=== PATIENT | female | born 1955 | race Caucasian/White ===

== ENCOUNTER → 2023-10-16 11:14 | Outpatient (REF) | payer MEDICARE, OTHER, SELFPAY | LOC: RAD 11:14 | PROVIDERS: ATTENDING PHYSICIAN Student in an Organized Health Care Education/Training Program | DX: M54.50 Low back pain, unspecified (principal); M25.551 Pain in right hip; M25.552 Pain in left hip | CPT/HCPCS: 72110 ==

== ENCOUNTER 2023-11-21 09:52 | Emergency (ER) | payer MEDICARE, OTHER, SELFPAY ==
[2023-11-21 10:30] VITALS: BP 163/91
[2023-11-21 11:57] VITALS: BMI 20.2
[2023-11-21 12:00] VITALS: BP 160/88
--- NOTE | 2023-11-21 12:05 | EDRN ---
Dr. Nichole in room w /pt at this time.
[2023-11-21 12:16] LABS: % Basophils 1.3 % (0-2); % Eosinophils 2.3 % (0-6); % Immature Granulocytes 0.2 % (0-0.5); % Lymphocytes 38.6 % (20.5-51.1); % Monocytes 9.7 % (1.7-9.3); % Neutrophils 47.9 % (42.2-75.2); Absolute Basophils 0.1 10^3/uL (0-0.2); Absolute Eosinophils 0.1 10^3/uL (0-0.7); Absolute Lymphocytes 2.4 10^3/uL (1.2-3.4); Absolute Monocytes 0.6 10^3/uL (0.1-0.6); Hematocrit 32.4 % (37.0-47.0); Hemoglobin 11.4 g/dL (12.0-16.0); Mean Corp Hgb Conc. 35.2 g/dL (33.0-37.0); Mean Corpuscular Hgb 33.7 pg (27.0-31.0); Mean Corpuscular Volume 95.9 fL (81.0-99.0); Mean Platelet Volume 10.8 fL (7.4-10.4); Nucleated Red Blood Cells % 0 %; Platelet Count 192 10^3/uL (130-400); Red Blood Cell Count 3.38 10^6/uL (4.20-5.40); White Blood Cell Count 6.2 10^3/uL (4.8-10.8)
--- NOTE | 2023-11-21 12:26 | ED.GENMED ---
History of Present Illness
General
Chief Complaint: Flank Pain
Source: patient and spouse
Exam Limitations: none
Time Seen by Provider: 11/21/23 11:48
Nursing documentation reviewed up to this point in time: agreed with
History of Present Illness
History of Present Illness:
68-year-old female with a past medical history of hypertension who presents to the emergency room for evaluation of abdominal/flank pain. Pain is located in the right lateral abdomen radiates towards the right flank; she describes the pain as sharp
and burning in quality. Patient reports onset of symptoms Thursday and have been waxing and waning but consistent since then. She says symptoms seem to be worse when she sits up and somewhat better when she lays flat. She reports associated nausea
but no vomiting. Denies any diarrhea or constipation. Denies any dysuria, hematuria, change in urinary frequency. She is status post hysterectomy, no vaginal bleeding. She denies fever or chills. She denies any other complaints. She denies
having had similar symptoms in the past. She does report that she had a strain/injury to her low back the day prior to onset of her symptoms.
Review of Systems
Review of Systems
All Other Systems: ROS reviewed and negative except as documented in HPI and ROS
Constitutional: Denies fever or chills
Respiratory: Denies cough or trouble breathing
Cardiac: Denies chest pain
ABD/GI: Reports abdominal pain and nausea; Denies vomiting, diarrhea or constipated
: Reports flank pain; Denies dysuria, frequency or bleeding
Musculoskeletal: Denies neck pain or back pain
Neurological: Denies dizzy or headache
Phy Exam
Physical Exam
Physical Exam:
General: Awake, alert, oriented x3; no acute distress
Head: Normocephalic, atraumatic
Eyes: Conjunctiva normal, sclera anicteric
Throat: Airway intact, handling secretions
Neck: Trachea midline, supple without meningismus
Lungs: Clear to auscultation bilaterally, no wheezing, rales, rhonchi
Heart: Regular rate and rhythm, no murmurs, gallops, or rubs
Abd: Soft, non distended, nontender to deep palpation�specifically nontender in the right lower quadrant
Back: No CVA tenderness
Neuro: No gross deficits
Extremities: Warm and well-perfused
Scores
Heart Failure Risk
Heart Failure Risk Score: Not Applicable
Heart Score for Chest Pain Patients
STEMI patient?: Not applicable
Withdrawal Assessment of Alcohol
Withdrawal Assessment Completed?: Not applicable
Course
Orders/Labs/Results
Orders:
Orders
11/21/23 11:40
IV Insert/Care/Rem.- Treatment PRN
11/21/23 11:50
CT Abd/pel Without Iv Or Oral Urgent
Comment:
Reason For Exam: right flank pain
11/21/23 11:51
Complete Blood Count/With Diff Urgent
Comprehensive Metabolic Panel Urgent
Urinalysis Reflex To Culture Urgent
Date Specimen was Collected: 11/21/23
Time Specimen was Collected: 11:40
Urine Microscopic Reflex Cult Urgent
Urine Culture Urgent
BONY Source: U
Specimen Description:
Date Specimen was Collected: 11/21/23
Time Specimen was Collected: 11:40
11/21/23 12:26
Acetaminophen [Tylenol] 650 mg PO NOW STA
Abnormal Lab Results
11/21/23
11:51
RBC 3.38 L 10^6/uL
(4.20-5.40)
Hgb 11.4 L g/dL
(12.0-16.0)
Hct 32.4 L %
(37.0-47.0)
MCH 33.7 H pg
(27.0-31.0)
MPV 10.8 H fL
(7.4-10.4)
Monocytes % 9.7 H %
(1.7-9.3)
Urine Ketones Trace A
(Negative)
Leukocyte Esterase Rfl 2+ A
(Negative)
Urine Bacteria (Reflex) Few A
(Negative)
11/21/23 11:51
11/21/23 11:51
Vital Signs
Initial and Last Documented VS:
Initial Vital Signs
Temp Pulse Resp BP Pulse Ox
37.5 C 79 16 163/91 100
11/21/23 10:30 11/21/23 10:30 11/21/23 10:30 11/21/23 10:30 11/21/23 10:30
Last Documented Vital Signs
Temp Pulse Resp BP Pulse Ox
37.5 C 71 16 146/83 100
11/21/23 10:30 11/21/23 13:00 11/21/23 13:00 11/21/23 13:00 11/21/23 13:00
MDM/Problems Addressed
Differential Diagnosis Includes:
Nephrolithiasis, UTI/pyelonephritis, appendicitis, cholecystitis/cholelithiasis, musculoskeletal pain/radiculopathy
MDM/Problems Addressed:
68-year-old female presents evaluation of right abdominal/flank pain ongoing x 5 days as described above. Hypertensive but otherwise normal vitals. Physical exam as above. Will plan to place an IV check labs including CBC and CMP. Check
urinalysis. Will send for CT abdomen pelvis. Will treat pain�She has been treating successfully with Tylenol at home, will start with this. Will reassess after the above. Clinically suspect likely nephrolithiasis.
Labs reviewed: CBC shows marginal anemia otherwise unremarkable. CMP no clinically significant abnormalities. Urinalysis negative for infection�only few bacteria with squamous cells to suggest contamination in the absence of dysuria, change in
frequency low suspicion for UTI and will hold on antibiotic treatment. CT of the abdomen pelvis showed no nephrolithiasis or other acute pathology to account for symptoms. Appendix was not visualized on this study notably. While she does have
right-sided pain she has no abdominal tenderness whatsoever, no leukocytosis, no fever and 4 days of symptoms. I had a long discussion with the patient. I explained that while CT was negative it could not rule out appendicitis 100%. I offered
repeat CT with p.o. and IV contrast to rule out appendicitis but patient does not feel this is necessary and is okay with watchful waiting for now. I think at this point most likely diagnosis is that this is either musculoskeletal pain or
potentially a radiculopathy�she did have a back strain prior to onset of the symptoms and actually already has an appointment with [facility] this week. She feels comfortable following up with [facility] in the office continue to treat at
home with Tylenol and returning if symptoms seem to worsen or she develops a fever or any other complaints. Using shared decision making we will forego repeat CT scan with p.o. and IV contrast in favor of watchful waiting and outpatient follow-up
with strict return precautions.
Acute Exacerbation and/or Progression of Chronic Illness:
Acutely hypertensive
Acute Exacerbation and/or Progression of Chronic Illness: HTN
*Radiology
Radiology exam reviewed: radiology read reviewed
*Pulse Oximetry
Patient hypoxic: no
*Critical Care Note
Total Time (30-74mins, 75-104mins- exclusive of procedures): Not Applicable
Data Reviewed
Review of Other/Old Records Reveals: Labs and Records
Source: patient and spouse
Prescriptions/Medications Considered But Not Given:
Considered need for antibiotics as above
Further Testing Considered But Not Given:
Considered second CT with p.o. and IV contrast as described above
Patient Management
Escalation/DeEscalation of care consider admission/obs:
Shared decision making�discharged as above
ED Attending Note
-
Portions of this chart may have been created with voice recognition software.� Occasional wrong word or��sound alike� substitutions may have occurred due to the inherent limitations of voice recognition software.
Discharge Plan
Departure
Patient Disposition: Home (Routine Discharge)
Date of Disposition: 11/21/23
Time of Disposition: 14:06
Patient with high blood pressure during this ER visit?: Yes
Discharge Problem:
Right flank pain, Hypertension, Anemia
Instructions: Flank Pain (DC), BLOOD PRESSURE
Prescriptions:
No Action
multivitamin [Bzk-Oleasa-Zaerj] 1 EACH tablet
1 tab PO DAILY
cyanocobalamin (vitamin B-12) 100 MCG tablet
1,000 mcg PO DAILY
calcium carbonate 500 MG tablet
500 mg PO DAILY
biotin 1 MG capsule
1 mg PO DAILY
oxycodone-acetaminophen 5 MG/325 MG tablet
1 tab PO Q4HPRN PRN (Reason: mild pain) Qty: 20 0RF
Referrals:
Augustina Villarreal PA-C [Family Provider] - Follow up in 5-7 days
Activity Restrictions/Additional Instructions:
As we discussed to the emergency room, while we think your symptoms are likely from a pinched nerve or muscular issue we could not with certainty locate your appendix on CT scan. We spoke about potentially repeating CT scan with oral contrast but
after discussion we opted to instead treat conservatively with watchful waiting and Tylenol for pain. If you notice your symptoms are worsening or you develop fever, or any other symptoms that are concerning you should return to the emergency room.
Otherwise you should follow-up with [facility] orthopedics as scheduled. Incidentally while here in the emergency room you also were noted to have high blood pressure and your blood work also showed some very mild anemia. These issues should be
followed up with your primary care physician and you should schedule an appointment within the next week to follow-up on this visit.
Thank you for visiting the Emergency Department at [facility].
1. Please schedule a follow up appointment as directed. Call first thing tomorrow morning to make an appointment.
2. If indicated, please take your medications as instructed and indicated on discharge paperwork.
3. If any of your symptoms do not improve, or persist, or become more severe within 6-12 hours, please return to the emergency department for further care.
4. Please return to the emergency department if you develop a headache, neck pain/stiffness, fever greater than 100.4F, chest pain, shortness of breath, persistent nausea, vomiting, slurred speech, difficulty walking, numbness/tingling, weakness,
signs of infection or any other symptoms that are worrisome to you.
Please call [phone] if you have any questions.
Interventions
Interventions:
*Risk Screen - Suicide Last Done: 11/21/23 12:00
*General Assessment Last Done: 11/21/23 12:00
*Neglect/Abuse Screening Last Done: 11/21/23 12:00
ED- Fall Risk Assessment Last Done: 11/21/23 12:00
*ED COVID-19 Vaccine History Last Done: 11/21/23 12:00
KB-Eenrcy-Glmaqzjizm Assessment Last Done: 11/21/23 12:00
ED-Female Genitourinary Assessment Last Done: 11/21/23 12:00
Discharge Date and Time
Print Language: CAP[place]
[2023-11-21 12:35] LABS: Urine Albumin Negative (Neg - Trace); Urine Bilirubin Negative (Negative); Urine Character Clear (Clear); Urine Color Yellow; Urine Glucose Negative (Negative); Urine Ketone Trace (Negative); Urine Leukocyte 2+ (Negative); Urine Nitrite Negative (Negative); Urine Occult Blood Negative (Negative); Urine Urobilinogen Negative (Neg - 1+); Urine pH 6.5 (5.0-9.0)
[2023-11-21 12:36] LABS: ALT (SGPT) 16 U/L (0-35); AST (SGOT) 29 U/L (14-36); Albumin 4.6 g/dl (3.5-5.0); Alkaline Phosphatase 66 U/L (38-126); Blood Urea Nitrogen 10 mg/dl (7-17); Calcium 9.6 mg/dl (8.4-10.2); Carbon Dioxide 28 mmol/L (22-30); Chloride 102 mmol/L (98-107); Estimated Creatinine Clearance 85 ml/min; Glucose 92 mg/dl (70-99); Potassium 4.1 mmol/L (3.5-5.1); Sodium 135 mmol/L (135-145); Total Bilirubin 0.7 mg/dl (0.2-1.3); Total Protein 7.2 g/dl (6.3-8.2); eGFR > 60.00
[2023-11-21 12:45] LABS: Urine Bacteria Few (Negative); Urine Red Blood Cell 0-2 /HPF (0-2); Urine Squamous Cell 0-2 /LPF (Few)
[2023-11-21] MEDS: TYLENOL 650 MG PO (12:57)
[2023-11-21 13:00] VITALS: BP 146/83
[2023-11-21 14:30] VITALS: BP 161/88
== END 2023-11-21 14:35 | disposition home or self-care (01) ==
LOC: EMR 09:52
PROVIDERS: EMERGENCY PHYSICIAN Emergency Medicine; FAMILY PHYSICIAN Student in an Organized Health Care Education/Training Program
DX: R10.9 Unspecified abdominal pain (principal); D64.9 Anemia, unspecified; I10 Essential (primary) hypertension
CPT/HCPCS: 99284; 74176; 80053; 81003; 81015; 85025; 87086

== ENCOUNTER → 2024-12-27 14:04 | Outpatient (REF) | payer MEDICARE, OTHER, SELFPAY | LOC: HWRAD 14:04 | PROVIDERS: ATTENDING PHYSICIAN Student in an Organized Health Care Education/Training Program | DX: M54.6 Pain in thoracic spine (principal); R07.9 Chest pain, unspecified | CPT/HCPCS: 71046 ==

== ENCOUNTER → 2025-01-26 13:49 | Outpatient (REF) | payer MEDICARE, OTHER, SELFPAY | LOC: WDC 13:49 | PROVIDERS: ATTENDING PHYSICIAN Student in an Organized Health Care Education/Training Program | DX: Z12.31 Encounter for screening mammogram for malignant neoplasm of breast (principal); N64.4 Mastodynia | CPT/HCPCS: 76642; 77063; 77067 ==

== ENCOUNTER → 2025-02-24 09:14 | Outpatient (REF) | payer MEDICARE, OTHER, SELFPAY | LOC: HWRAD 09:14 | PROVIDERS: ATTENDING PHYSICIAN Student in an Organized Health Care Education/Training Program | DX: M85.80 Other specified disorders of bone density and structure, unspecified site (principal); M81.0 Age-related osteoporosis without current pathological fracture | CPT/HCPCS: 77080 ==

== ENCOUNTER → 2025-03-15 11:37 | Outpatient (REF) | payer MEDICARE, OTHER, SELFPAY | LOC: HWRAD 11:37 | PROVIDERS: ATTENDING PHYSICIAN Physician Assistant | DX: M77.11 Lateral epicondylitis, right elbow (principal); M25.511 Pain in right shoulder | CPT/HCPCS: 73030; 73080 ==